=== PATIENT | female | born 1955 | race Caucasian/White ===

== ENCOUNTER 2017-11-12 13:24 | Emergency (ER) | payer BC ==
[~2017-11-12] VITALS: Ht 157.5 cm; Wt 82.9 kg
[~2017-11-12 13:24] MED LIST: CIPRO500 MG PO; DIFLUCAN150 MG PO; GAS-X ULTRA ST180 MG PO; ILOTYCIN1 GM BOTH EYES; PERCOCET 5/31 TABLET PO; ZOFRAN ODT4 MG PO
[2017-11-12 14:40] LABS: HEMATOCRIT 41.1 % (36.0-46.0); HEMOGLOBIN 13.5 G/DL (11.9-15.5); MCH 29.9 PG (29.0-34.0); MCHC 32.8 G/DL (30.0-36.0); MCV 90.9 FL (83-99); PLATELET COUNT 312 K/uL (156-360); RBC DIS.WIDTH-CV 13.1 % (11.8-14.6); RBC DIS.WIDTH-SD 43.5 % (39-53); RED BLOOD COUNT 4.52 M/uL (3.80-5.20); WHITE BLOOD COUNT 9.5 K/uL (4.1-10.2)
[2017-11-12 14:53] LABS: CHLORIDE 106 mEq/L (99-109); POTASSIUM 4.2 mEq/L (3.7-5.4); SODIUM 139 mEq/L (136-147)
[2017-11-12 14:55] LABS: GLUCOSE 140 mg/dL (70-99)
[2017-11-12 14:58] LABS: CREATININE 0.7 mg/dL (0.6-1.3); GFR ESTIMATE (CALCULATED) > 59 mL/min/
[2017-11-12 14:59] LABS: UREA NITROGEN (BUN) 15 mg/dL (9-23)
[2017-11-12 15:02] LABS: TROP-I INTERPRETATION NEGATIVE; TROPONIN-I < 0.01 ng/mL (0.0-0.30)
[2017-11-12] MEDS ORDERED: PAROXETINE HCL20 MG PO (15:22)
[2017-11-12] MEDS ORDERED: GLIPIZIDE10 MG PO (15:22)
[2017-11-12] MEDS ORDERED: PRINIVIL10 MG PO (15:23)
[2017-11-12] MEDS ORDERED: LIPITOR80 MG PO (15:23)
[2017-11-12] MEDS ORDERED: TOPROL XL25 MG PO (15:23)
[2017-11-12] MEDS ORDERED: MOBIC15 MG PO (15:24)
[2017-11-12] MEDS ORDERED: PHENAZOPYRIDIN200 MG PO (15:24)
[2017-11-12] MEDS ORDERED: TYLENOL EXTRA500 MG PO (15:25)
[2017-11-12] MEDS ORDERED: HUMULIN N100 UNITS/ SC (15:25)
[2017-11-12] MEDS ORDERED: NOVOLOG 10100 UNITS/ SC (15:26)
[2017-11-12 17:58] LABS: TROP-I INTERPRETATION NEGATIVE; TROPONIN-I < 0.01 ng/mL (0.0-0.30)
[2017-11-12 18:28] VITALS: BP 196/91
== END 2017-11-12 18:28 | disposition home or self-care (01) ==
LOC: EME 13:24
PROVIDERS: Nurse Practitioner Family
DX: R07.9 Chest pain, unspecified (principal); R51 Headache; I10 Essential (primary) hypertension; E11.9 Type 2 diabetes mellitus without complications; Z79.4 Long term (current) use of insulin; E78.5 Hyperlipidemia, unspecified; Z88.1 Allergy status to other antibiotic agents; Z88.2 Allergy status to sulfonamides; Z88.0 Allergy status to penicillin
CPT/HCPCS: 71046; 80048; 84484; 85027; 93005; 99281; 99283

== ENCOUNTER 2018-03-28 16:40 | Emergency (ER) | payer BC ==
[~2018-03-28] VITALS: Ht 157.5 cm; Wt 80.0 kg
[~2018-03-28 16:40] MED LIST changes: +GLIPIZIDE10 MG PO; +HUMULIN N100 UNITS/ SC; +LIPITOR80 MG PO; +MOBIC15 MG PO; +NOVOLOG 10100 UNITS/ SC; +PAROXETINE HCL20 MG PO; +PHENAZOPYRIDIN200 MG PO; +PRINIVIL10 MG PO; +TOPROL XL25 MG PO; +TYLENOL EXTRA500 MG PO
[2018-03-28 19:10] LABS: HEMATOCRIT 40.4 % (36.0-46.0); HEMOGLOBIN 13.7 G/DL (11.9-15.5); MCH 30.1 PG (29.0-34.0); MCHC 33.9 G/DL (30.0-36.0); MCV 88.8 FL (83-99); PLATELET COUNT 286 K/uL (156-360); RBC DIS.WIDTH-SD 42.2 % (39-53); RED BLOOD COUNT 4.55 M/uL (3.80-5.20); WHITE BLOOD COUNT 9.9 K/uL (4.1-10.2)
[2018-03-28 19:12] LABS: APPEARANCE CLEAR ((CLEAR)); BILIRUBIN NEGATIVE; BLOOD NEGATIVE; COLOR YELLOW ((YELLOW)); GLUCOSE (STRIP) >=500; KETONES 5; LEUKOCYTES NEGATIVE; NITRITE NEGATIVE; PROTEIN (STRIP) NEGATIVE; SPECIFIC GRAVITY 1.036 (1.000-1.030); UCUL ADDED? NO
[2018-03-28 19:43] LABS: ALBUMIN 3.9 g/dL (3.2-4.8)
[2018-03-28 19:44] LABS: CHLORIDE 103 mEq/L (99-109); POTASSIUM 3.7 mEq/L (3.7-5.4); SODIUM 138 mEq/L (136-147)
[2018-03-28 19:46] LABS: GLUCOSE 145 mg/dL (70-99)
[2018-03-28 19:48] LABS: TOTAL BILIRUBIN 0.4 mg/dL (0.0-1.0)
[2018-03-28 19:49] LABS: ALKALINE PHOSPHATASE 106 IU/L (3-129)
[2018-03-28 19:50] LABS: CREATININE 0.7 mg/dL (0.6-1.3); GFR ESTIMATE (CALCULATED) > 59 mL/min/
[2018-03-28 19:51] LABS: AST (GOT) 14 IU/L (2-34); UREA NITROGEN (BUN) 11 mg/dL (9-23)
[2018-03-28 19:53] LABS: ALT (GPT) 13 IU/L (3-49)
[2018-03-28 20:27] VITALS: BP 127/61
== END 2018-03-28 20:28 | disposition home or self-care (01) ==
LOC: EME 16:40
PROVIDERS: Physician Assistant
DX: E11.65 Type 2 diabetes mellitus with hyperglycemia (principal); I95.9 Hypotension, unspecified; Z79.4 Long term (current) use of insulin; Z88.2 Allergy status to sulfonamides; Z88.0 Allergy status to penicillin
CPT/HCPCS: 80053; 81003; 85027; 93005; 99281; 99284